=== PATIENT | female | born 1985 | race American Indian/Alaskan Native ===

== ENCOUNTER 2017-02-08 21:58 | Emergency (ER) | payer OTHER ==
[2017-02-08 22:04] VITALS: BP 117/79; PULSE 74; TEMP 97.3; O2SAT 98
--- NOTE | 2017-02-08 22:45 | C.PDOC ---
History Of Present Illness A 31 y/o female presents to the ER c/o right wrist pain for 3 weeks. Pt notes pain is worse today with movement. Pt denies numbness, tingling, weakness, fever , chills, injury to the area, or any other complaints. Pt did not take any medications for pain. Time Seen by Provider: 02/08/17 22:09 Chief Complaint (Nursing): Upper Extremity Problem/Injury History Per: Patient History/Exam Limitations: no limitations Onset/Duration Of Symptoms: Days Current Symptoms Are (Timing): Still Present Quality: "Pain" Severity: Mild Exacerbating Factor(s): Movement Recent travel outside of the [place]: No Additional History Per: Patient Past Medical History Reviewed: Historical Data, Nursing Documentation, Vital Signs Vital Signs: Last Vital Signs Temp 97.3 F L 02/08/17 22:02 Pulse 74 02/08/17 22:02 Resp 20 02/08/17 23:17 BP 117/79 02/08/17 22:02 Pulse Ox 98 02/08/17 23:00 - Medical History PMH: No Chronic Diseases Surgical History: No Surg Hx Family History: States: Unknown Family Hx - Social History Hx Tobacco Use: No Hx Alcohol Use: No Hx Substance Use: No Review Of Systems Except As Marked, All Systems Reviewed And Found Negative. Constitutional: Negative for: Fever, Chills, Other (Injury to the right wrist) Cardiovascular: Negative for: Chest Pain Respiratory: Negative for: Cough, Shortness of Breath Musculoskeletal: Positive for: Hand Pain (Right wrist pain) Skin: Negative for: Rash, Lesions Neurological: Negative for: Weakness, Numbness Physical Exam - Physical Exam Appears: Non-toxic, No Acute Distress Skin: Warm, Dry Head: Atraumatic, Normacephalic Eye(s): bilateral: Normal Inspection Chest: Symmetrical, No Tenderness Cardiovascular: Rhythm Regular, No Murmur Respiratory: Normal Breath Sounds, No Rales, No Rhonchi, No Wheezing Gastrointestinal/Abdominal: Soft, No Tenderness Extremity: Normal ROM, Tenderness (Tenderness along the ulnar aspect of the right thumb to wrist. Worse with movement of thumb and wrist), Capillary Refill (<2secs), No Deformity, Swelling (mild swelling to distal right forearm, no erythema or warmth) Extremity: Bilateral: Normal Color And Temperature, Normal ROM Pulses: Left Radial: Normal, Right Radial: Normal Neurological/Psych: Oriented x3, Normal Speech, Normal Cognition, Normal Motor, Normal Sensation, Other (No focal deficit) ED Course And Treatment O2 Sat by Pulse Oximetry: 98 (RA) Pulse Ox Interpretation: Normal Progress Note: pt felt better after application of leandro bandage. will d.c home with nsaids with plastics/hand f/u. Reassessment Condition: Improved Medical Decision Making Medical Decision Making: Impression: 31 y/o female c/o right wrist pain for 3 weeks Plans: -Tylenol -Leandro bandage Pt was treated for tendonitis. Pt is resting comfortably and instructed to follow up with PMD if symptoms continues to persist. Disposition Counseled Patient/Family Regarding: Diagnosis, Need For Followup - Disposition Referrals: Jannie Smith MD [Staff Provider] - Silvana Quezada MD [Staff Provider] - Disposition: HOME/ ROUTINE Disposition Time: 22:43 Condition: STABLE Additional Instructions: Wear Leandro Bandage for comfort. Take Motrin or Tylenol for pain. Apply cold compress several times a day to affected wrist. Follow up with orthopedics or hand surgeon if pain not improving. Instructions: Tendinitis (ED) Forms: General Discharge Instructions - Clinical Impression Clinical Impression: Tendinitis of right wrist - Scribe Statement The provider has reviewed the documentation as recorded by the Scribwilliam christensen All medical record entries made by the Scribe were at my direction and personally dictated by me. I have reviewed the chart and agree that the record accurately reflects my personal performance of the history, physical exam, medical decision making, and the department course for this patient. I have also personally directed, reviewed, and agree with the discharge instructions and disposition.
[2017-02-08 23:18] VITALS: RESP 20
== END 2017-02-08 23:17 | disposition home or self-care (01) ==
LOC: C.ER 21:58
DX: M77.9 Enthesopathy, unspecified (principal)